=== PATIENT | male | born 1990 | race African-American/Black ===

== ENCOUNTER 2018-03-14 13:26 | Emergency (ER) | payer OTHER ==
[~2018-03-14] VITALS: Ht 182.9 cm; Wt 112.0 kg
[2018-03-14 14:15] VITALS: BP 126/61; PULSE 60; RESP 18; TEMP 98.6; O2SAT 98
[2018-03-14] MEDS ORDERED: LIDOCAINE 1%/EPINEPHrine 1:100,000 SOLN 20 ML VIAL INFIL ONE (15:00)
[2018-03-14] MEDS ORDERED: IBUP1TAB7 PO (15:14)
[2018-03-14] MEDS ORDERED: BACT800T5 PO (15:14)
--- NOTE | 2018-03-14 15:24 | PD ---
HPI Chief Complaint: Skin Problem Time Seen by Provider: 14:47 Travel History International Travel<30 days: No Contact w/Intl Traveler<30days: No Traveled to known affect area: No History of Present Illness HPI 27-year-old -[place] male presents emergency department with several "lesions" which he felt might be due to insect bites. Patient states these areas started a couple of days ago and is gotten progressively more tender. He is able to get some drainage out of the one under his left axilla area, as well as the one in the lower anterior abdomen just to the right and below the umbilicus. Patient has no history of this before. He has another large one under the right axilla. Patient denies fever, chills, or IV drug use. Pain is currently 8 out of 10. He states his had similar lesions about a year ago. He has no known drug allergies. [facility] Social History Alcohol Use: Yes Tobacco Use: No Substance Use: No Allergies-Medications (Allergen,Severity, Reaction): Coded Allergies: No Known Allergies (Unverified , 03/14/18) Reported Meds & Prescriptions Reported Meds & Active Scripts Active No Active Prescriptions or Reported Medications Review of Systems Except as stated in HPI: all other systems reviewed are Neg General / Constitutional: No: Fever Eyes: No: Visual changes HENT: No: Headaches Cardiovascular: No: Chest Pain or Discomfort Respiratory: No: Shortness of Breath Gastrointestinal: No: Abdominal Pain Genitourinary: No: Dysuria Musculoskeletal: No: Pain Skin: Positive Lesions (See history of present illness), No Rash Neurologic: No: Weakness Psychiatric: No: Depression Endocrine: No: Polydipsia Hematologic/Lymphatic: No: Easy Bruising Physical Exam Narrative GENERAL: Mild distress. SKIN: Warm and dry. Normal color. Normal turgor. Patient has 3 apparent abscesses, apparently from folliculitis. There is one under each axilla, and one to the anterior right lower abdomen. The one under the left axilla spontaneously Draining purulent drainage. HEAD: Atraumatic. Normocephalic. EYES: Pupils equal and round. No scleral icterus. No injection or drainage. ENT: No nasal bleeding or discharge. Mucous membranes pink and moist. Pharynx is clear. Airways patent NECK: Trachea midline. Supple and nontender. CARDIOVASCULAR: Regular rate and rhythm. RESPIRATORY: No accessory muscle use. Clear to auscultation. Breath sounds equal bilaterally. MUSCULOSKELETAL: Extremities without clubbing, cyanosis, or edema. No obvious deformities. NEUROLOGICAL: Awake and alert. No obvious cranial nerve deficits. Motor grossly within normal limits. Five out of 5 muscle strength in the arms and legs. Normal speech. PSYCHIATRIC: Appropriate mood and affect; insight and judgment normal. Data Data Last Documented VS Vital Signs Date Time Temp Pulse Resp B/P (MAP) Pulse Ox O2 Delivery O2 Flow Rate FiO2 03/14/18 14:15 98.6 60 18 126/61 (82) 98 Orders Orders Lidocai-Epi 1%-1:100,000 Inj (Xylocaine- (03/14/18 15:00) Wound Culture And Gram Stain (03/14/18 14:52) MDM Medical Decision Making Medical Screen Exam Complete: Yes Emergency Medical Condition: Yes Differential Diagnosis Cellulitis. Folliculitis. Abscess. Narrative Course The abscess under the left axilla is spontaneously draining and does not require further I&D I&D is performed on the right lower anterior abdomen abscess, as well as the right axillary abscess. See procedure note. Wound culture sent to the lab. Packing is placed and into remain in place for the next 2 days. Patient is placed on Bactrim DS twice daily 7 days. Patient is given ibuprofen 800 mg 3 times daily #30 Patient is to return in 2 days for wound check and packing removal Work note is given. Procedures Procedure Narrative After the risks and benefits were discussed the following procedure was performed: INCISION AND DRAINAGE OF ABSCESS: The area on the right lower anterior abdomen was prepped and was sterilely draped. A subcutaneous wheal of 1 % Xylocaine with epi with a total number 2 mL was used to anesthetize the area. The area was properly anesthetized. A number 11 scalpel was used to make a 0.5-cm incision across the area of the abscess. Cultures were obtained. The abscess was drained an irrigated with normal saline. Quarter inch iodoform packing was placed in the wound. Sterile dressing applied. Patient advised to have packing removed in two days. After the risks and benefits were discussed the following procedure was performed: INCISION AND DRAINAGE OF ABSCESS: The area under the right axilla was prepped and was sterilely draped. A subcutaneous wheal of 1 % Xylocaine with epi with a total number 2.5 mL was used to anesthetize the area. The area was properly anesthetized. A number 11 scalpel was used to make a 0.5-cm incision across the area of the abscess. Cultures were obtained. The abscess was drained an irrigated with normal saline. Quarter inch iodoform packing was placed in the wound. Sterile dressing applied. Patient advised to have packing removed in two days. Diagnosis Primary Impression: Folliculitis of axilla Additional Impressions: Folliculitis Abscess Patient Instructions: Abscess Incision and Drainage (DC), General Instructions Departure Forms: Work Release Enter return to work date: March 16, 2018 Additional Instructions: Wound culture sent to the lab. Packing is placed and into remain in place for the next 2 days. Patient is placed on Bactrim DS twice daily 7 days. Patient is given ibuprofen 800 mg 3 times daily #30 Patient is to return in 2 days for wound check and packing removal Work note is given. Med/Other Pt SpecificInfo: Prescription(s) given Scripts Ibuprofen (Ibuprofen) 800 Mg Tab 800 MG PO Q8H Y for Pain/Inflammation, #30 TAB 0 Refills Prov: James Loo MD 03/14/18 Sulfamethoxazole-Trimethoprim (Bactrim DS) 800-160 Mg Tab 1 TAB PO BID for Infection, #14 TAB 0 Refills Prov: James Loo MD 03/14/18 Disposition: 01 DISCHARGE HOME Condition: Stable Claude Wahl March 14, 2018 15:24
== END 2018-03-14 15:37 | disposition home or self-care (01) ==
LOC: NEPK 13:26
DX: L73.9 Follicular disorder, unspecified (principal); L02.211 Cutaneous abscess of abdominal wall; L02.411 Cutaneous abscess of right axilla
CPT/HCPCS: 10061; 86403; 87070; 87186; 87205

== ENCOUNTER 2018-03-16 11:23 | Emergency (ER) | payer OTHER ==
[~2018-03-16] VITALS: Ht 182.9 cm; Wt 112.0 kg
[~2018-03-16 11:23] MED LIST: BACT800T5 PO; IBUP1TAB7 PO
[2018-03-16 11:33] VITALS: BP 124/67; PULSE 59; RESP 20; TEMP 98.5; O2SAT 98
--- NOTE | 2018-03-16 11:52 | PD ---
HPI Chief Complaint: Wound/Suture/Staple Re-Check Time Seen by Provider: 11:40 Travel History International Travel<30 days: No Contact w/Intl Traveler<30days: No Traveled to known affect area: No History of Present Illness HPI Patient comes back to the emergency department for recheck after having I&D performed in his right axilla and abdomen 2 days ago. Patient reports he has not started antibiotics as previously prescribed. Patient reports some tenderness around sites without radiation. Touching the sites makes the pain worse. Not touching improves pain. Denies any fevers or other concerns. Severity mild. PFSH Past Medical History Medical History: Denies Significant Hx Social History Alcohol Use: Yes Tobacco Use: No Substance Use: No Allergies-Medications (Allergen,Severity, Reaction): Coded Allergies: No Known Allergies (Unverified , 03/14/18) Reported Meds & Prescriptions Reported Meds & Active Scripts Active Ibuprofen 800 Mg Tab 800 Mg PO Q8H PRN Bactrim DS (Sulfamethoxazole-Trimethoprim) 800-160 Mg Tab 1 Tab PO BID Review of Systems Except as stated in HPI: all other systems reviewed are Neg Physical Exam Narrative GENERAL: Well-developed, overly nourished, in no acute distress, and non-ill appearing. SKIN: Well-healing abscesses noted in the right axilla and lower abdomen. Packing is in place. No drainage. Mild tenderness around site. No crepitus or fluctuation. HEAD: Atraumatic. Normocephalic. EYES: Pupils equal and round. EOMI. No scleral icterus. No injection or drainage. ENT: No nasal bleeding or discharge. Mucous membranes pink and moist. NECK: Trachea midline. Supple. No nuclear rigidity. RESPIRATORY: No accessory muscle use. No respiratory distress. MUSCULOSKELETAL: No obvious deformities. No clubbing. No cyanosis. No edema. Full range of motion. NEUROLOGICAL: Awake and alert. No obvious cranial nerve deficits. Motor grossly within normal limits. Normal speech. PSYCHIATRIC: Appropriate mood and affect; insight and judgment normal. Data Data Last Documented VS Vital Signs Date Time Temp Pulse Resp B/P (MAP) Pulse Ox O2 Delivery O2 Flow Rate FiO2 03/16/18 11:33 98.5 59 20 124/67 (86) 98 Orders Orders Ed Discharge Order (03/16/18 11:52) [facility] Medical Decision Making Medical Screen Exam Complete: Yes Emergency Medical Condition: Yes Differential Diagnosis Wound recheck, packing change, wound infection Narrative Course Patient in no obvious distress upon re-evaluation. Patient instructed to obtain and take all antibiotics previously prescribed. Any questions/concerns in reference to patient diagnosis/condition discussed and clarified prior to patient's discharge. Reinforced sheer importance of close follow up with patient 's primary physician or primary care clinic. Instructed patient to return to ED immediately, if symptoms return/worsen. Patient showed understanding of above instructions. Further instructions and recommendations were detailed in discharge paperwork. Patient ambulated without difficulty out of ED at discharge. Procedures Procedure Narrative Verbal consent was obtained. Packing was easily removed from both sites without difficulty. Patient tolerated procedure well. There was no complications. Diagnosis Primary Impression: Abscess re-check Referrals: [facility] Patient Instructions: Abscess Follow-up (ED), Acute Wound Care (DC), General Instructions Additional Instructions: Follow-up with your primary care physician in 3-5 days for reevaluation. Obtain and take all medication as previously prescribed. Return to the emergency department if symptoms get worse. Med/Other Pt SpecificInfo: Prescription(s) given Disposition: 01 DISCHARGE HOME Condition: Stable Leo Og March 16, 2018 11:52
== END 2018-03-16 12:24 | disposition home or self-care (01) ==
LOC: NEPK 11:23
DX: Z48.00 Encounter for change or removal of nonsurgical wound dressing (principal)
CPT/HCPCS: 99281